=== PATIENT | female | born 1935 | race Caucasian/White ===

== ENCOUNTER 2020-02-20 10:22 | Outpatient (CLI) | payer BC ==
--- NOTE | 2020-02-20 19:31 | CT ---
CT ABDOMEN AND PELVIS WITH IV CONTRAST: Oral contrast was administered. 02/20/20 INDICATIONS: Abdominal pain. Weight loss. Family history of colon cancer. There are no comparison studies. FINDINGS: Lung bases are clear. Liver, spleen and pancreas appear unremarkable. Stomach and duodenum unremarkable. Adrenal glands normal. Kidneys unremarkable. Small bowel loops normal caliber. The colon appears unremarkable with large stool volume. The appendix is not identified. Scattered div erticula in the left colon without CT evidence of diverticulitis. The aorta is normal caliber. No mass or adenopathy. No free fluid. Images through the pelvis show mil dly distended bladder which is unremarkable. Uterus and adnexa appear unremarkable. Osseous structure s unremarkable with moderate degenerative changes in the spine. IMPRESSION: 1. No acute process. 2. Moderate stool volume may indicate constipation. Stool filled mildly dilated rectum is noted possibly representing impending impaction. POS: [facility]
== END 2020-02-20 10:23 | disposition home or self-care (01) ==
LOC: SCSCT 10:22
PROVIDERS: ATTEND Internal Medicine Gastroenterology
DX: R10.13 Epigastric pain (principal); R63.4 Abnormal weight loss; K59.39 Other megacolon; Z80.0 Family history of malignant neoplasm of digestive organs; Z86.010 Personal history of colon polyps
CPT/HCPCS: 74177; 82565

== ENCOUNTER 2022-09-13 12:23 | Inpatient (IN) | payer MEDICARE, BC ==
[2022-09-13 14:35] VITALS: BMI 20.5
[2022-09-13] MEDS ORDERED: Ondansetron PF 4 MG/2 ML Vial IVP PRN (14:50)
[2022-09-13] MEDS: Dicyclomine 10 MG CAP PO PRN (17:37)
[2022-09-13] MEDS: Ciprofloxacin 500 MG TAB PO SCH (20:18)
[2022-09-13] MEDS: metroNIDAZOLE 500 MG TAB PO SCH (20:19)
[2022-09-13] MEDS: Atorvastatin Calcium 40 MG TAB PO SCH (20:20)
[2022-09-14 05:37] LABS: Anion Gap 10 mmol/L (10-20); BUN (Urea Nitrogen) 12 mg/dL (9.8-20.1); Calc. Creatinine Clearance 48 mL/min (70-130); Carbon Dioxide 25 mmol/L (23-31); Chloride 100 mmol/L (98-107); Estimated GFR 80; Glucose 96 mg/dL (83-110); Potassium 3.7 mmol/L (3.5-5.1); Sodium 131 mmol/L (136-145)
[2022-09-14 05:51] LABS: #Eosinphils 0.1 thou/uL (0.0-0.7); #Lymphocytes 1.4 thou/uL (1.20-3.40); #Monocytes 0.9 thou/uL (0.11-0.59); #Neutrophils 5.3 thou/uL (1.40-6.50); %Eosinophils 0.8 % (0.0-10.0); %Lymphocytes 18.6 % (21.0-51.0); %Monocytes 11.6 % (0.0-10.0); %Neutrophils 69.1 % (42.0-75.0); Hemoglobin 11.3 g/dL (12.0-16.0); Mean Corpuscular HGB CONC 34.2 g/dL (32.0-36.0); Mean Corpuscular Hemoglobin 35.9 pg (27.0-31.0); Mean Platelet Volume 8.4 fL (7.4-10.4); Platelet Count 194 10x3/uL (130-400); RBC Distribution Width 11.6 % (11.5-14.5); Red Blood Cell (RBC) Count 3.16 mill/uL (4.20-5.40); White Blood Cell (WBC) Count 7.7 10x3/uL (4.8-10.8)
[2022-09-14] MEDS: Dicyclomine 10 MG CAP PO PRN ×3 (06:24→21:17)
[2022-09-14] MEDS: Ciprofloxacin 500 MG TAB PO SCH ×2 (06:24→21:18)
[2022-09-14 08:44] LABS: Troponin I 0.097 ng/mL (< 0.028)
[2022-09-14] MEDS ORDERED: Famotidine 20 MG TAB PO SCH (09:00)
[2022-09-14] MEDS: Amlodipine 5 MG TAB PO SCH (10:49)
[2022-09-14] MEDS: Aspirin 81 mg Enteric Coated Tablet PO SCH (10:49)
[2022-09-14] MEDS: FLUoxetine HCl 20 MG CAP PO SCH (10:50)
[2022-09-14] MEDS: metroNIDAZOLE 500 MG TAB PO SCH ×3 (10:51→21:17)
[2022-09-14] MEDS: Tamsulosin HCl 0.4 MG CAP PO SCH (10:52)
[2022-09-14] MEDS ORDERED: Docusate 100 MG CAP PO PRN (14:21)
[2022-09-14] MEDS ORDERED: Polyethylene Glycol 3350 17 GM Packet PO PRN (14:21)
[2022-09-14] MEDS ORDERED: Lidocaine 2% Viscous Solution 10 ML, Aluminum & Magnesium Hydroxide 30 ML SSW SCH (15:15)
[2022-09-14] MEDS: Atorvastatin Calcium 40 MG TAB PO SCH (21:17)
[2022-09-14] MEDS: Morphine 4 MG/ML VIAL SLOW IVP PRN (21:20)
[2022-09-15] MEDS: Ciprofloxacin 500 MG TAB PO SCH (05:11)
[2022-09-15] MEDS: Dicyclomine 10 MG CAP PO PRN ×2 (05:11→16:09)
[2022-09-15] MEDS: Morphine 4 MG/ML VIAL SLOW IVP PRN (05:13)
[2022-09-15 08:45] LABS: Mean Corpuscular HGB CONC 33.7 g/dL (32.0-36.0); Mean Corpuscular Hemoglobin 36.2 pg (27.0-31.0); Mean Platelet Volume 8.6 fL (7.4-10.4); Platelet Count 167 10x3/uL (130-400); RBC Distribution Width 11.6 % (11.5-14.5); Red Blood Cell (RBC) Count 3.04 mill/uL (4.20-5.40); White Blood Cell (WBC) Count 9.6 10x3/uL (4.8-10.8)
[2022-09-15 09:11] LABS: Anion Gap 13 mmol/L (10-20); BUN (Urea Nitrogen) 19 mg/dL (9.8-20.1); Calc. Creatinine Clearance 38 mL/min (70-130); Calcium 8.8 mg/dL (7.8-10.44); Carbon Dioxide 20 mmol/L (23-31); Chloride 98 mmol/L (98-107); Estimated GFR 61; Glucose 109 mg/dL (83-110); Potassium 4.5 mmol/L (3.5-5.1); Sodium 126 mmol/L (136-145)
[2022-09-15] MEDS: Aspirin 81 mg Enteric Coated Tablet PO SCH (09:15)
[2022-09-15] MEDS: Amlodipine 5 MG TAB PO SCH (09:16)
[2022-09-15] MEDS: Tamsulosin HCl 0.4 MG CAP PO SCH (09:16)
[2022-09-15] MEDS: FLUoxetine HCl 20 MG CAP PO SCH (09:16)
[2022-09-15] MEDS: metroNIDAZOLE 500 MG TAB PO SCH ×2 (09:16→16:09)
[2022-09-15 10:00] LABS: Band 1 % (5-11); Lymphocytes 14 % (21-51); MDiff Complete? YES; Macrocytosis SLIGHT = 6-15 cells (100X) (0-5/hpf); Monocytes 20 % (0-10); Neutrophil 65 % (42-75); Platelet Morphology Comment Appears Adequate; Polychromasia SLIGHT = 2-3 cells (100X) (0-2/hpf)
[2022-09-15] MEDS: Sodium Chloride 0.9% 1,000 ML IV SCH (12:47)
[2022-09-15] MEDS ORDERED: CeleCOXIB 100 MG CAP PO PRN (17:16)
[2022-09-15] MEDS: Atorvastatin Calcium 40 MG TAB PO SCH (20:11)
[2022-09-15] MEDS: Amitriptyline HCl 10 MG TAB PO SCH (20:12)
[2022-09-16] MEDS: Sodium Chloride 0.9% 1,000 ML IV SCH (02:20)
[2022-09-16 05:39] LABS: Anion Gap 8 mmol/L (10-20); BUN (Urea Nitrogen) 24 mg/dL (9.8-20.1); Calc. Creatinine Clearance 40 mL/min (70-130); Calcium 8.4 mg/dL (7.8-10.44); Carbon Dioxide 23 mmol/L (23-31); Chloride 97 mmol/L (98-107); Estimated GFR 66; Glucose 108 mg/dL (83-110); Potassium 4.1 mmol/L (3.5-5.1); Sodium 124 mmol/L (136-145)
[2022-09-16 05:44] LABS: Hemoglobin 9.7 g/dL (12.0-16.0); Mean Corpuscular HGB CONC 34.4 g/dL (32.0-36.0); Mean Corpuscular Hemoglobin 36.3 pg (27.0-31.0); Mean Platelet Volume 8.6 fL (7.4-10.4); Platelet Count 138 10x3/uL (130-400); RBC Distribution Width 11.5 % (11.5-14.5); Red Blood Cell (RBC) Count 2.68 mill/uL (4.20-5.40); White Blood Cell (WBC) Count 9.6 10x3/uL (4.8-10.8)
[2022-09-16 06:29] LABS: Band 7 % (5-11); Lymphocytes 11 % (21-51); MDiff Complete? YES; Monocytes 18 % (0-10); Neutrophil 64 % (42-75)
[2022-09-16] MEDS: Aspirin 81 mg Enteric Coated Tablet PO SCH (08:44)
[2022-09-16] MEDS: Amlodipine 5 MG TAB PO SCH (08:45)
[2022-09-16 13:41] LABS: Anion Gap 10 mmol/L (10-20); BUN (Urea Nitrogen) 21 mg/dL (9.8-20.1); Calc. Creatinine Clearance 40 mL/min (70-130); Calcium 8.7 mg/dL (7.8-10.44); Carbon Dioxide 23 mmol/L (23-31); Chloride 97 mmol/L (98-107); Estimated GFR 66; Glucose 110 mg/dL (83-110); Potassium 4.6 mmol/L (3.5-5.1); Sodium 125 mmol/L (136-145)
[2022-09-16] MEDS: Amitriptyline HCl 10 MG TAB PO SCH (20:40)
[2022-09-16] MEDS: Atorvastatin Calcium 40 MG TAB PO SCH (20:41)
[2022-09-16] MEDS: Acetaminophen 325 MG TAB PO PRN (20:47)
[2022-09-17 05:47] LABS: Anion Gap 10 mmol/L (10-20); BUN (Urea Nitrogen) 29 mg/dL (9.8-20.1); Calc. Creatinine Clearance 39 mL/min (70-130); Calcium 8.4 mg/dL (7.8-10.44); Carbon Dioxide 22 mmol/L (23-31); Chloride 97 mmol/L (98-107); Estimated GFR 62; Glucose 94 mg/dL (83-110); Magnesium 1.9 mg/dL (1.6-2.6); Potassium 3.9 mmol/L (3.5-5.1); Sodium 125 mmol/L (136-145)
[2022-09-17] MEDS: Amlodipine 5 MG TAB PO SCH (07:53)
[2022-09-17] MEDS: Aspirin 81 mg Enteric Coated Tablet PO SCH (07:53)
[2022-09-17] MEDS: FLUoxetine HCl 20 MG CAP PO SCH (07:53)
[2022-09-17 12:08] LABS: Anion Gap 11 mmol/L (10-20); BUN (Urea Nitrogen) 26 mg/dL (9.8-20.1); Calc. Creatinine Clearance 40 mL/min (70-130); Calcium 8.8 mg/dL (7.8-10.44); Carbon Dioxide 23 mmol/L (23-31); Chloride 96 mmol/L (98-107); Estimated GFR 65; Glucose 115 mg/dL (83-110); Potassium 3.5 mmol/L (3.5-5.1); Sodium 126 mmol/L (136-145)
[2022-09-17 19:18] LABS: Anion Gap 11 mmol/L (10-20); BUN (Urea Nitrogen) 31 mg/dL (9.8-20.1); Calc. Creatinine Clearance 32 mL/min (70-130); Calcium 8.8 mg/dL (7.8-10.44); Carbon Dioxide 23 mmol/L (23-31); Chloride 97 mmol/L (98-107); Estimated GFR 51; Glucose 131 mg/dL (83-110); Potassium 3.9 mmol/L (3.5-5.1); Sodium 127 mmol/L (136-145)
[2022-09-17] MEDS ORDERED: Cosyntropin 250 MCG VIAL SLOW IVP SCH (19:30)
[2022-09-17] MEDS: Atorvastatin Calcium 40 MG TAB PO SCH (22:22)
[2022-09-17] MEDS: Amitriptyline HCl 10 MG TAB PO SCH (22:22)
[2022-09-18 00:28] LABS: Troponin I 0.045 ng/mL (< 0.028)
[2022-09-18 09:02] LABS: Anion Gap 11 mmol/L (10-20); BUN (Urea Nitrogen) 24 mg/dL (9.8-20.1); Calc. Creatinine Clearance 44 mL/min (70-130); Calcium 8.5 mg/dL (7.8-10.44); Carbon Dioxide 23 mmol/L (23-31); Chloride 99 mmol/L (98-107); Estimated GFR 73; Glucose 93 mg/dL (83-110); Potassium 3.8 mmol/L (3.5-5.1); Sodium 129 mmol/L (136-145)
[2022-09-18] MEDS: Aspirin 81 mg Enteric Coated Tablet PO SCH (09:42)
[2022-09-18] MEDS: FLUoxetine HCl 20 MG CAP PO SCH (09:43)
[2022-09-18] MEDS: Amlodipine 5 MG TAB PO SCH (09:43)
[2022-09-18] MEDS: Atorvastatin Calcium 40 MG TAB PO SCH (20:19)
[2022-09-18] MEDS: Calcium Carbonate 500 MG ChewTAB PO PRN (21:51)
[2022-09-19] MEDS: Calcium Carbonate 500 MG ChewTAB PO PRN (05:28)
[2022-09-19 05:55] LABS: Anion Gap 11 mmol/L (10-20); BUN (Urea Nitrogen) 22 mg/dL (9.8-20.1); Calc. Creatinine Clearance 50 mL/min (70-130); Calcium 8.9 mg/dL (7.8-10.44); Carbon Dioxide 23 mmol/L (23-31); Chloride 100 mmol/L (98-107); Estimated GFR 84; Glucose 85 mg/dL (83-110); Potassium 3.5 mmol/L (3.5-5.1); Sodium 130 mmol/L (136-145)
[2022-09-19] MEDS: Amlodipine 5 MG TAB PO SCH (08:45)
[2022-09-19] MEDS: Aspirin 81 mg Enteric Coated Tablet PO SCH (08:46)
[2022-09-19] MEDS: FLUoxetine HCl 20 MG CAP PO SCH (08:46)
[2022-09-19] MEDS ORDERED: Hydrocortisone Acetate 25 MG Suppository PR PRN (15:52)
[2022-09-19] MEDS: Atorvastatin Calcium 40 MG TAB PO SCH (20:58)
[2022-09-20] MEDS: Calcium Carbonate 500 MG ChewTAB PO PRN (04:58)
[2022-09-20] MEDS: Acetaminophen 325 MG TAB PO PRN (04:58)
[2022-09-20] MEDS: Amlodipine 5 MG TAB PO SCH (08:59)
[2022-09-20] MEDS: FLUoxetine HCl 20 MG CAP PO SCH (08:59)
[2022-09-20] MEDS: Aspirin 81 mg Enteric Coated Tablet PO SCH (08:59)
[2022-09-20 12:04] LABS: Anion Gap 9 mmol/L (10-20); BUN (Urea Nitrogen) 22 mg/dL (9.8-20.1); Calc. Creatinine Clearance 46 mL/min (70-130); Calcium 9.4 mg/dL (7.8-10.44); Carbon Dioxide 27 mmol/L (23-31); Chloride 99 mmol/L (98-107); Estimated GFR 78; Glucose 89 mg/dL (83-110); Potassium 3.3 mmol/L (3.5-5.1); Sodium 132 mmol/L (136-145)
[2022-09-20] MEDS ORDERED: Preparation H Ointment 28 GM TUBE TOP PRN (12:19)
[2022-09-20] MEDS ORDERED: Furosemide 40 MG/4 ML VIAL SLOW IVP SCH (16:15)
[2022-09-20 18:45] LABS: #Eosinphils 0.1 thou/uL (0.0-0.7); #Lymphocytes 1.3 thou/uL (1.20-3.40); #Monocytes 1.3 thou/uL (0.11-0.59); #Neutrophils 5.9 thou/uL (1.40-6.50); %Basophils 0.2 % (0.0-1.0); %Eosinophils 1.4 % (0.0-10.0); %Lymphocytes 14.7 % (21.0-51.0); %Monocytes 14.8 % (0.0-10.0); %Neutrophils 68.8 % (42.0-75.0); Hemoglobin 10.9 g/dL (12.0-16.0); Mean Corpuscular HGB CONC 34.4 g/dL (32.0-36.0); Mean Platelet Volume 7.9 fL (7.4-10.4); Platelet Count 277 10x3/uL (130-400); RBC Distribution Width 11.6 % (11.5-14.5); Red Blood Cell (RBC) Count 3.04 mill/uL (4.20-5.40); White Blood Cell (WBC) Count 8.6 10x3/uL (4.8-10.8)
[2022-09-20 19:09] LABS: Anion Gap 11 mmol/L (10-20); BUN (Urea Nitrogen) 33 mg/dL (9.8-20.1); Calc. Creatinine Clearance 40 mL/min (70-130); Calcium 9.2 mg/dL (7.8-10.44); Carbon Dioxide 26 mmol/L (23-31); Chloride 99 mmol/L (98-107); Estimated GFR 66; Glucose 114 mg/dL (83-110); Potassium 3.7 mmol/L (3.5-5.1); Sodium 132 mmol/L (136-145)
[2022-09-20] MEDS: Atorvastatin Calcium 40 MG TAB PO SCH (19:50)
[2022-09-21] MEDS: Calcium Carbonate 500 MG ChewTAB PO PRN (01:49)
[2022-09-21] MEDS: Acetaminophen 325 MG TAB PO PRN (03:52)
[2022-09-21] MEDS: Aspirin 81 mg Enteric Coated Tablet PO SCH (08:46)
[2022-09-21] MEDS: FLUoxetine HCl 20 MG CAP PO SCH (08:46)
[2022-09-21] MEDS: Amlodipine 5 MG TAB PO SCH (08:46)
[2022-09-21] MEDS ORDERED: Electrolyte Replacement Protocol 1 EACH FS ONE (08:49)
[2022-09-21] MEDS ORDERED: Electrolyte Replacement Protocol FS PRN (09:15)
[2022-09-21 10:13] LABS: #Eosinphils 0.1 thou/uL (0.0-0.7); #Lymphocytes 1.2 thou/uL (1.20-3.40); #Monocytes 0.9 thou/uL (0.11-0.59); #Neutrophils 3.9 thou/uL (1.40-6.50); %Basophils 0.3 % (0.0-1.0); %Eosinophils 1.4 % (0.0-10.0); %Lymphocytes 19.6 % (21.0-51.0); %Monocytes 14.2 % (0.0-10.0); %Neutrophils 64.5 % (42.0-75.0); Hemoglobin 11.2 g/dL (12.0-16.0); Mean Corpuscular Hemoglobin 35.1 pg (27.0-31.0); Platelet Count 313 10x3/uL (130-400); RBC Distribution Width 11.6 % (11.5-14.5); Red Blood Cell (RBC) Count 3.18 mill/uL (4.20-5.40)
[2022-09-21 10:32] LABS: Anion Gap 12 mmol/L (10-20); BUN (Urea Nitrogen) 29 mg/dL (9.8-20.1); Calc. Creatinine Clearance 47 mL/min (70-130); Calcium 9.3 mg/dL (7.8-10.44); Carbon Dioxide 24 mmol/L (23-31); Chloride 100 mmol/L (98-107); Estimated GFR 79; Glucose 117 mg/dL (83-110); Magnesium 1.6 mg/dL (1.6-2.6); Potassium 3.6 mmol/L (3.5-5.1); Sodium 132 mmol/L (136-145)
[2022-09-21] MEDS ORDERED: Magnesium 2 GM/50 ML(in water) 2 GM in Premix Bag 1 BAG IVPB SCH (14:00)
[2022-09-21] MEDS: Atorvastatin Calcium 40 MG TAB PO SCH (19:57)
[2022-09-21] MEDS: Simethicone Chewable 80 MG TAB PO PRN (19:57)
[2022-09-22 05:53] LABS: Hemoglobin 10.7 g/dL (12.0-16.0); Mean Corpuscular Hemoglobin 35.1 pg (27.0-31.0); Platelet Count 293 10x3/uL (130-400); RBC Distribution Width 11.7 % (11.5-14.5); Red Blood Cell (RBC) Count 3.03 mill/uL (4.20-5.40); White Blood Cell (WBC) Count 7.1 10x3/uL (4.8-10.8)
[2022-09-22 06:13] LABS: Anion Gap 11 mmol/L (10-20); BUN (Urea Nitrogen) 27 mg/dL (9.8-20.1); Calc. Creatinine Clearance 53 mL/min (70-130); Calcium 9.2 mg/dL (7.8-10.44); Carbon Dioxide 28 mmol/L (23-31); Chloride 99 mmol/L (98-107); Estimated GFR 85; Glucose 91 mg/dL (83-110); Magnesium 1.9 mg/dL (1.6-2.6); Phosphorus 3.4 mg/dL (2.3-4.7); Potassium 3.8 mmol/L (3.5-5.1); Sodium 134 mmol/L (136-145)
[2022-09-22 06:49] LABS: Band 3 % (5-11); Hypochromia SLIGHT = 6-15 cells (100X) (0-5/hpf); Lymphocytes 27 % (21-51); MDiff Complete? YES; Macrocytosis SLIGHT = 6-15 cells (100X) (0-5/hpf); Monocytes 4 % (0-10); Neutrophil 66 % (42-75); Platelet Morphology Comment Appears Adequate
[2022-09-22] MEDS ORDERED: Magnesium 2 GM/50 ML(in water) 2 GM in Premix Bag 1 BAG IVPB SCH (08:00)
[2022-09-22] MEDS: Aspirin 81 mg Enteric Coated Tablet PO SCH (08:54)
[2022-09-22] MEDS: Amlodipine 5 MG TAB PO SCH (08:54)
[2022-09-22] MEDS: FLUoxetine HCl 20 MG CAP PO SCH (08:55)
[2022-09-22] MEDS: Acetaminophen 325 MG TAB PO PRN (16:07)
[2022-09-22 19:26] VITALS: BP 109/62; TEMP 97.8
[2022-09-22] MEDS: Simethicone Chewable 80 MG TAB PO PRN (19:54)
[2022-09-22] MEDS: Atorvastatin Calcium 40 MG TAB PO SCH (19:55)
== END 2022-09-22 21:20 | DRG 391 ==
LOC: 2SW 14:11 → OBSVTOIN 09-14 14:18 → T4-B 09-19 20:56
PROVIDERS: ADMIT Internal Medicine; ATTEND Internal Medicine
DX: K58.1 Irritable bowel syndrome with constipation (principal); I21.A1 Myocardial infarction type 2; E22.2 Syndrome of inappropriate secretion of antidiuretic hormone; R33.9 Retention of urine, unspecified; Z20.822 Contact with and (suspected) exposure to COVID-19; K21.9 Gastro-esophageal reflux disease without esophagitis; I34.1 Nonrheumatic mitral (valve) prolapse; R77.8 Other specified abnormalities of plasma proteins; F32.A Depression, unspecified; N18.2 Chronic kidney disease, stage 2 (mild); I12.9 Hypertensive chronic kidney disease with stage 1 through stage 4 chronic kidney disease, or unspecified chronic kidney disease; F41.1 Generalized anxiety disorder; Z79.899 Other long term (current) drug therapy; Z80.0 Family history of malignant neoplasm of digestive organs
CPT/HCPCS: 36415; 71046; 74176; 80048; 80400; 83735; 83930; 83935; 84100; 84300; 84443; 84484; 85025; 87811; 96372; G0378; J0834; J1650; J2270; J2405; J3475; J7050; U0003; U0005